=== PATIENT | male | born 2000 | race Caucasian/White ===

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

== ENCOUNTER 2022-02-06 14:15 | Emergency (ER) | payer OTHER ==
[~2022-02-06] VITALS: Ht 185 cm; Wt 90.7 kg
[2022-02-06 14:20] VITALS: BP 181/67
--- NOTE | 2022-02-06 16:09 | ED Integumentary General ---
General Chief Complaint: Allergic Reaction Stated Complaint: RASH ON TORSO Nursing Triage Note: ARRIVED VIA AMB TO TRIAGE WITH A COMPLAINT OF A RASH ON BACK/ABD THAT STARTED YESTERDAY. WORRIED HE GOT SOMETHING FROM THE GYM. Source: patient Exam Limitations: no limitations History of Present Illness Date Seen by Provider: Feb 06, 2022 Time Seen by Provider: 16:02 Allergies and Home Medications Allergies Coded Allergies: prednisone (Verified Allergy, Unknown, 03/07/20) Past Wlzwclh-Rlgygv-Azodrg Hx Patient Social History Tobacco Use?: No Substance use?: No Alcohol Use?: No Past Medical History Surgeries: No Respiratory: No Cardiac: No Neurological: No Genitourinary: No Gastrointestinal: No Musculoskeletal: No Endocrine: No HEENT: No Cancer: No Psychosocial: No Integumentary: No Blood Disorders: No Physical Exam Vital Signs Vital Signs - First Documented 02/06/22 14:20 Temp 37.1 Pulse 54 Resp 16 B/P (MAP) 181/67 (105) Pulse Ox 98 O2 Delivery Room Air Capillary Refill : Less Than 3 Seconds Progress/Results/Core Measures Results/Orders Vital Signs/I&O 02/06/22 14:20 Temp 37.1 Pulse 54 Resp 16 B/P (MAP) 181/67 (105) Pulse Ox 98 O2 Delivery Room Air Blood Pressure Mean: 105 Departure Impression Primary Impression: Urticaria Disposition: 01 HOME, SELF-CARE Condition: Stable Departure-Patient Inst. Decision time for Depature: 16:08 Referrals: NO,LOCAL PHYSICIAN (PCP/Family) Primary Care Physician Patient Instructions: Hives Add. Discharge Instructions: Plan: 1. clean up helper banquet a bottle of Zyrtec [id number], you can take the generic which is cetirizine and take 1 of these. Your symptoms should start to improve within an hour. You can also take Benadryl 1-2 tabs at bedtime tonight if your symptoms persist or worsen. 2. Try to avoid any new substances, detergents, lotions, foods you may not ever find the source of your hives today. 3. If you have any new, worsening symptoms, worsening hives, shortness of breath, difficulty swallowing return to the ER. All discharge instructions reviewed with patient and/or family. Voiced understanding. LUCIUS SORENSEN APRN Feb 06, 2022 16:09
== END 2022-02-06 16:14 | disposition home or self-care (01) ==
LOC: EDUNIT# 14:15 → ER 14:17
DX: L50.9 Urticaria, unspecified (principal); Z28.310 Unvaccinated for COVID-19
CPT/HCPCS: 99281